=== PATIENT | female | born 1955 | race Caucasian/White ===

== ENCOUNTER 2018-06-24 09:39 | Outpatient (CLI) | payer MEDICARE, MEDICAID ==
[2018-06-24] MEDS ORDERED: Bupivacaine 0.5% 30 ML SDV ONE (10:27)
[2018-06-24] MEDS ORDERED: methylPREDNISolone Acetate 40 MG/ML SDV ONE (10:27)
[2018-06-24] MEDS ORDERED: Bupivacaine 0.25% 10 ML SDV ONE (10:27)
[2018-06-24 10:48] VITALS: BP 118/77; PULSE 80
--- NOTE | 2018-06-24 20:23 | ANES ---
DATE OF SERVICE: 06/24/2018 INDICATION: Ms. Martínez is a 63-year-old female patient, referred to the [facility] to us by Dr. Rodriguez. She is here today for her trigger points as well as an epidural steroid injection. Please see the orders for the patient's preprocedure diagnosis. Risks and benefits of the procedure were explained to the patient. She wished to proceed with an epidural steroid injection as well as trigger points. TECHNIQUE: I placed the epidural to L5-S1 using a 17-gauge Tuohy needle in loss of resistance technique. The epidural had very good feel throughout and the epidural space was easily identified. There was negative CSF, negative blood, and negative paresthesias noted. Therefore, 40 mg of Depo-Medrol and 2 mL of 0.25% Sensorcaine with 7 mL preservative-free normal saline were injected with ease. The patient tolerated the epidural procedure very nicely. Attention was then turned to the trigger points, where I found 20 noticeable cervicothoracic and lumbar trigger points. I injected each of these with 1 to 2 mL of 0.5% Sensorcaine. I did inject more than 3 muscle groups. She tolerated the procedure very nicely. Her vital signs remained stable throughout the procedure and nurse was with me for the entire procedure. There were no anesthesia complications noted. She is going to return in 2 weeks for trigger point injections. She was discharged from the [facility] per protocol. Sander Rosales CRNA /[id number]
== END 2018-06-24 11:01 | disposition home or self-care (01) ==
LOC: JP.PAIN 09:39
PROVIDERS: ATTEND Internal Medicine
DX: M60.9 Myositis, unspecified (principal); M47.817 Spondylosis without myelopathy or radiculopathy, lumbosacral region; M43.17 Spondylolisthesis, lumbosacral region
CPT/HCPCS: 20553; 62320; J1030; J3490

== ENCOUNTER 2018-07-29 12:59 | Outpatient (CLI) | payer MEDICARE, MEDICAID ==
[~2018-07-29 12:59] MED LIST: Bupivacaine 0.5% 30 ML SDV ONE
[2018-07-29 13:38] VITALS: BP 128/64; PULSE 85
--- NOTE | 2018-07-30 00:41 | ANES ---
DATE OF SERVICE: 07/29/2018 Ms. Martínez is a 63-year-old female patient, referred to the [facility] to us by Dr. Rodriguez. She is here today for her trigger points. Please see the orders for the patient's preprocedure diagnosis as well as ICD-10 code. The risks and benefits of the procedure were explained to the patient, and she wished to proceed with trigger points. Did find 21 noticeable thoracic and lumbar trigger points. I injected each of these with 1 to 2 mL of 0.5% Sensorcaine. I did inject more than 3 muscle groups. She tolerated the procedure very nicely. Her vital signs remained stable throughout the procedure and nurse with me entire procedure. There were no anesthesia complications noted. She is going to return in 2 weeks for trigger point injections. She was discharged from the [facility] per protocol. Sander Rosales CRNA /[id number]
== END 2018-07-29 13:40 | disposition home or self-care (01) ==
LOC: JP.PAIN 12:59
PROVIDERS: ATTEND Internal Medicine
DX: M60.9 Myositis, unspecified (principal)
CPT/HCPCS: 20553; J3490